=== PATIENT | male | born 1960 | race Caucasian/White ===

== ENCOUNTER 2016-09-01 22:51 | Emergency (ER) | payer SELFPAY ==
[2016-09-01] MEDS ORDERED: CHLORDIAZEPOXIDE 25MG PREPK#6 BTL TAKEHOME ONE (23:22)
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
[2016-09-02] MEDS ORDERED: CHLORDIAZEPOXIDE 25MG PREPK#6 BTL TAKEHOME ONE (01:43)
[2016-09-02 02:06] VITALS: BP 132/80; PULSE 86; RESP 16; O2SAT 98
== END 2016-09-02 02:05 | disposition home or self-care (01) ==
LOC: EDUNIT#
DX: F10.920 Alcohol use, unspecified with intoxication, uncomplicated (principal)

== ENCOUNTER 2017-06-02 02:40 | Emergency (ER) | payer SELFPAY ==
[2017-06-02 02:50] VITALS: BP 143/85; PULSE 126; RESP 16; TEMP 98.2; O2SAT 95
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
== END 2017-06-02 03:47 | disposition home or self-care (01) ==
DX: S80.12XA Contusion of left lower leg, initial encounter (principal); S80.812A Abrasion, left lower leg, initial encounter; F17.200 Nicotine dependence, unspecified, uncomplicated; W22.8XXA Striking against or struck by other objects, initial encounter

== ENCOUNTER 2017-08-31 09:15 | Emergency (ER) | payer OTHER ==
[2017-08-31] MEDS ORDERED: NS 1,000 ML IV ONE (09:25)
[2017-08-31] MEDS ORDERED: LORazepam 2 MG/ML INJ IVP ONE (09:25)
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
[2017-08-31 09:59] LABS: PLATELET COUNT 34 10^3/uL (150-400)
[2017-08-31] MEDS ORDERED: CHLORDIAZEPOXIDE 25MG PREPK#6 BTL TAKEHOME ONE (12:04)
[2017-08-31 12:27] VITALS: BP 132/76
== END 2017-08-31 12:45 | disposition still patient (30) ==
LOC: EDUNIT#
DX: R56.9 Unspecified convulsions (principal); F10.230 Alcohol dependence with withdrawal, uncomplicated; D69.6 Thrombocytopenia, unspecified; E86.9 Volume depletion, unspecified; F17.200 Nicotine dependence, unspecified, uncomplicated
CPT/HCPCS: 96374; J2060

== ENCOUNTER 2017-11-11 14:46 | Emergency (ER) | payer SELFPAY ==
[2017-11-11] MEDS ORDERED: SULFAMETHOX/TMP 800/160 MG 1 TAB PO ONE (16:00)
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
[2017-11-11] MEDS ORDERED: IBUPROFEN 600 MG TAB PO ONE (16:17)
[2017-11-11 17:42] VITALS: BP 120/80
--- NOTE | 2017-11-12 17:26 | ASMTCMCOM ---
CM Note CM Note Notes: CM SBIRT consult received following pt's discharge. Pt presented to the Emergency Department with a left arm injury and alcohol intoxication. Pt is well known to this facility. No phone number provided by pt for follow up. CM unable to contact pt regarding need for alcohol resources. Pt was discharged to the police for an ARC hold. CM available for any further issues or concerns. Date Signed: 11/12/2017 05:25 PM Electronically Signed By:Yolanda Jim RN
== END 2017-11-11 17:42 | disposition home or self-care (01) ==
LOC: EDUNIT#
DX: L03.114 Cellulitis of left upper limb (principal); F10.929 Alcohol use, unspecified with intoxication, unspecified; F17.200 Nicotine dependence, unspecified, uncomplicated

== ENCOUNTER 2018-05-05 15:24 | Emergency (ER) | payer SELFPAY ==
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
[2018-05-05 15:30] VITALS: BP 106/86
== END 2018-05-05 15:46 ==
LOC: EDUNIT#
DX: Z00.01 Encounter for general adult medical examination with abnormal findings (principal); Y35.813A Legal intervention involving manhandling, suspect injured, initial encounter; Y93.02 Activity, running; Z87.81 Personal history of (healed) traumatic fracture; Z59.0 Homelessness

== ENCOUNTER 2018-06-15 19:23 | Emergency (ER) | payer SELFPAY ==
--- NOTE | 2018-06-15 19:33 | EDPHY ---
H & P Time Seen by Provider: 06/15/18 19:30 - Medical/Surgical History Hx Asthma: No Hx Chronic Respiratory Disease: No Hx Diabetes: No Hx Cardiac Disease: No Hx Renal Disease: No Hx Cirrhosis: No Hx Alcoholism: No Hx HIV/AIDS: No Hx Splenectomy or Spleen Trauma: No Other PMH: Alcoholism, closed head injury, multiple concussions, R ARM INJ, L ARM INJURY - Social History Smoking Status: Heavy smoker Allergies/Adverse Reactions: No Known Allergies Allergy (Verified 08/31/17 09:20) Home Medications: Medication Instructions Recorded NK [No Known Home Meds] 05/05/18 Medical Decision Making ED Course/Re-evaluation: CHIEF COMPLAINT: Alcohol intoxication. HISTORY OF PRESENT ILLNESS: The patient is a 57 y/o male arriving via EMS for alcohol intoxication. The patient is a chronic alcoholic living on [address]. Patient drinks on a daily basis and obtains whatever alcohol is available. Patient was found by bystanders who called EMS system. Patient cannot remember what she was drinking today. Patient has had multiple ER visits over the last several years for the same complaint. Patient denies any injuries denies loss of consciousness denies any recent trauma. Patient denies co-ingestion. Patient denies suicidal or homicidal behavior. REVIEW OF SYSTEMS: A comprehensive 10 system review of systems is otherwise negative aside from elements mentioned in the history of present illness and medical decision making. PHYSICAL EXAM: General Appearance: Appears intoxicated, alert, well hydrated, appropriate, and non-toxic appearing. Head: Atraumatic without scalp tenderness or obvious injury Eyes: Pupils equal, round, reactive to light and accommodation, EOMI, no trauma , no injection. Ears: Clear bilaterally, no perforation, normal landmarks Nose: Atraumatic, no rhinorrhea, clear. Throat: There is no erythema or exudates, no lesions, normal tonsils, mucus membranes moist. Neck: Supple, 2+ carotid upstroke, nontender, no lymphadenopathy. Respiratory: No retractions, no distress, no wheezes, and no accessory muscle use. Lungs are clear to auscultation bilaterally. Cardiovascular: Regular rate and rhythm, no murmurs, rubs, or gallops. Bilateral carotid, radial, dorsalis pedis, and posterior tibial pulses intact. Good capillary refill all extremities. Gastrointestinal: Abdomen is soft, nontender, non-distended, no masses, no rebound, no guarding, no peritoneal signs. Musculoskeletal: Normal active ROM of all extremities, atraumatic. Neurological: Alert, appropriate, and interactive. The patient has normal DTRs and non-focal cranial nerves, motor, sensory, and cerebellar exam. Skin: No rashes, good turgor, no nodules on palpation. PAST MEDICAL HISTORY: Alcoholism SOCIAL HISTORY: Transient, single, unemployed DIAGNOSTICS/PROCEDURES/CRITICAL CARE TIME: Not indicated. DIFFERENTIAL DIAGNOSIS: The differential diagnosis for the patient's altered mental status included but was not limited to hypoglycemia, infectious process, electrolyte abnormality, head injury, neurologic process, anemia, cardiac process, and intoxicants. MEDICAL DECISION MAKING: I serially examined this patient since the patient's arrival here in the emergency department. The patient continues to become more and more sober with each examination. 1931:I serially questioned the patient and the patient's story given initially has not changed. The patient still denies any trauma, any head injury, and any illicit drug use. At this point, the patient is walking the department freely and is clinically sober. We're discharging the patient to the [facility] in stable condition. Departure - Departure Disposition: Home, Routine, Self-Care Clinical Impression: Alcohol intoxication Qualifiers: Complication of substance-induced condition: uncomplicated Qualified Code(s): F10.920 - Alcohol use, unspecified with intoxication, uncomplicated Condition: Good Instructions: Abuse of Alcohol (ED), Alcohol Intoxication (ED) Additional Instructions: 1. Please refrain from abusing alcohol. 2. Return to the emergency department immediately for fever, vomiting, confusion , headache, abdominal pain or other worsening of condition. 3. Followup with your primary care physician within 72 hours for reevaluation. Referrals: [facility] Detox 24 Hours [Outside] - As per Instructions Report Scribed for: Yusef Dubon Report Scribed by: Julienne Giraldo Date of Report: 06/15/18 Time of Report: 19:30
[2018-06-15 19:44] VITALS: BP 140/94
== END 2018-06-15 19:57 | disposition home or self-care (01) ==
LOC: EDUNIT#
DX: F10.129 Alcohol abuse with intoxication, unspecified (principal); Z59.0 Homelessness

== ENCOUNTER 2018-09-16 14:01 | Emergency (ER) | payer OTHER | END 2018-09-16 15:20 | disposition home or self-care (01) ==